=== PATIENT | female | born 1980 | race Caucasian/White ===

== ENCOUNTER 2019-08-12 09:59 | Emergency (ER) | payer OTHER ==
[~2019-08-12] VITALS: Ht 170.2 cm; Wt 86.7 kg
[~2019-08-12 09:59] MED LIST: DEXT10TA2 PO; ESTR1PAT TD; IBUP-1984 PO; NORCO10T PO; ZOLP5TAB8 PO
[2019-08-12 10:50] LABS: CLARITY,URINE SLIGHTLY CLOUDY (Clear); COLOR,URINE YELLOW (Yellow); GLUCOSE, URINE NEGATIVE (Neg); KETONES,URINE NEGATIVE (Neg); LEUKOCYTE ESTERASE ,URINE NEGATIVE (Neg); NITRITES, URINE NEGATIVE (Neg); OCCULT BLOOD,URINE NEGATIVE (Neg); PROTEIN,URINE NEGATIVE (Neg); UROBILINOGEN,URINE 0.2 E.U/dL (0.2-1.0)
[2019-08-12 10:51] LABS: URINE HCG NEGATIVE (NEG)
[2019-08-12 11:04] LABS: UA COLLECTION TYPE CLN CATCH MIDSTREAM
[2019-08-12 11:08] LABS: RBC,URINE 0-2 /HPF (0-2); WBC,URINE 0-4 /HPF (0-4)
[2019-08-12 11:09] LABS: BACTERIA,URINE FEW /HPF (Neg); TRANSITIONAL EPI CELLS,URINE FEW /HPF
[2019-08-12 11:10] LABS: AMORPHOUS PHOSPHATES 1+
[2019-08-12 11:11] LABS: SQUAMOUS EPITHELIAL CELL,UR MODERATE /LPF (FEW)
[2019-08-12 12:38] VITALS: BP 117/71
[2019-08-12] MEDS ORDERED: dexamethasone sod phosphate 10mg/ml inj IV STA (12:39)
[2019-08-12] MEDS ORDERED: ketorolac trometh. 30mg/ml inj. IV ONE (12:40)
[2019-08-12] MEDS ORDERED: normal saline 1000ML IV soln IV ONE (12:40)
[2019-08-12 13:06] LABS: BASOPHILS % (AUTO) 0.4 % (0-1); EOSINOPHILS # (AUTO) 0.2 X10'3 (0-0.9); EOSINOPHILS % (AUTO) 2.2 % (0-6); HEMATOCRIT 41.2 % (35.0-45.0); HEMOGLOBIN 13.8 g/dl (12.0-16.0); LYMPHOCYTES # (AUTO) 2.1 X10'3 (1.1-4.8); LYMPHOCYTES % (AUTO) 23.8 % (21-51); MEAN CORPUSCULAR HEMOGLOBIN 32.3 PG (27.0-31.0); MEAN CORPUSCULAR HGB CONC 33.5 g/dL (33.0-36.5); MEAN CORPUSCULAR VOLUME 96.3 FL (78-98); MEAN PLATELET VOLUME 6.8 FL (7.4-10.4); MONOCYTES # (AUTO) 0.5 X10'3 (0-0.9); MONOCYTES % (AUTO) 5.6 % (2-12); NEUTROPHILS # (AUTO) 5.9 X10'3 (1.8-7.7); PLATELET COUNT 308 X10'3 (140-440); RED BLOOD COUNT 4.28 X10'6 (4.20-5.60); RED CELL DISTRIBUTION WIDTH 12.9 % (11.5-14.5); WHITE BLOOD COUNT 8.7 X10'3 (4.5-11.0)
[2019-08-12 13:19] LABS: ALANINE AMINOTRANSFERASE 23 U/L (12-78); ALBUMIN 4.2 G/DL (3.4-5.0); ALBUMIN/GLOBULIN RATIO 1.2 (1.1-1.5); ALKALINE PHOSPHATASE 67 IU/L (46-116); ANION GAP 11 (8-16); ASPARTATE AMINO TRANSFERASE 12 U/L (10-37); BILIRUBIN,TOTAL 0.3 MG/DL (0.1-1.0); BLOOD UREA NITROGEN 12 MG/DL (7-18); BUN/CREATININE RATIO 11.9 (6.6-38.0); CALCIUM 9.3 MG/DL (8.5-10.1); CHLORIDE 104 MMOL/L (99-107); CREATININE 1.01 MG/DL (0.40-0.90); GLUCOSE 100 MG/DL (70-104); POTASSIUM 4.3 MMOL/L (3.5-5.1); SODIUM 143 MMOL/L (135-145); TOTAL CARBON DIOXIDE 27.8 MMOL/L (24-32); TOTAL PROTEIN 7.6 G/DL (6.4-8.2); eGFR 61 ML/MIN
[2019-08-12] MEDS ORDERED: NAPR-56 PO (13:59)
[2019-08-12] MEDS ORDERED: ONDA4TAB6 PO (13:59)
[2019-08-12] MEDS ORDERED: LORazepam 2 mg/ml vial IV ONE (14:00)
[2019-08-12] MEDS ORDERED: metoclopramide 5 mg/ml inj IV ONE (14:00)
== END 2019-08-12 14:43 | disposition home or self-care (01) ==
LOC: ER 10:00
DX: G43.909 Migraine, unspecified, not intractable, without status migrainosus (principal); B34.9 Viral infection, unspecified; Z90.710 Acquired absence of both cervix and uterus; Z79.899 Other long term (current) drug therapy
CPT/HCPCS: 36415; 71045; 80053; 81001; 81025; 83605; 84145; 85025; 87040; 96374; 96375; 99284; J1100; J1885; J2060; J2765; J7030; J7040

== ENCOUNTER 2022-12-13 19:53 | Emergency (ER) | payer OTHER ==
[~2022-12-13] VITALS: Ht 170.2 cm; Wt 68.2 kg
[~2022-12-13 19:53] MED LIST changes: +ONDA4TAB6 PO
[2022-12-13 19:59] VITALS: BP 106/63
[2022-12-13] MEDS ORDERED: PRED20TA PO (21:48)
[2022-12-13] MEDS ORDERED: HYDR28CR14 TOP (21:48)
[2022-12-13] MEDS ORDERED: FAMO-128 PO (21:48)
[2022-12-13] MEDS ORDERED: famotidine 20mg tablet PO ONE (21:50)
== END 2022-12-13 22:07 | disposition home or self-care (01) ==
LOC: ER 19:54
DX: T78.40XA Allergy, unspecified, initial encounter (principal); G43.909 Migraine, unspecified, not intractable, without status migrainosus; Z90.49 Acquired absence of other specified parts of digestive tract; Z88.2 Allergy status to sulfonamides; Z88.8 Allergy status to other drugs, medicaments and biological substances; Z79.899 Other long term (current) drug therapy; Z79.1 Long term (current) use of non-steroidal anti-inflammatories (NSAID); Z79.2 Long term (current) use of antibiotics
CPT/HCPCS: 99283